=== PATIENT | male | born 1985 | race African-American/Black ===

== ENCOUNTER 2019-04-20 22:05 | Emergency (ER) | payer BC, OTHER ==
[~2019-04-20] VITALS: Ht 172.7 cm; Wt 94.7 kg
[2019-04-20 23:03] LABS: INFLUENZA A AMPLIFICATION NEGATIVE (NEGATIVE); INFLUENZA B AMPLIFICATION POSITIVE (NEGATIVE)
[2019-04-20] MEDS ORDERED: ACETAMINOPHEN 325 MG TAB PO ONE (23:15)
[2019-04-20] MEDS ORDERED: AUGM875T28 PO (23:22)
[2019-04-20] MEDS ORDERED: AUGMENTIN 875 MG TAB PO ONE (23:30)
[2019-04-20 23:35] VITALS: BP 130/65
== END 2019-04-20 23:37 | disposition home or self-care (01) ==
LOC: M ED 22:05
DX: J10.89 Influenza due to other identified influenza virus with other manifestations (principal); J02.0 Streptococcal pharyngitis